=== PATIENT | female | born 1940 | race Caucasian/White ===

== ENCOUNTER 2024-02-07 | Inpatient (IN) | payer MEDICARE, BC ==
[~2024-02-07] VITALS: Ht 167.6 cm; Wt 59.0 kg
[2024-02-07] MEDS ORDERED: ONDANSETRON HCL/PF 4 MG/2 ML VIAL ONE (00:32)
[2024-02-07] MEDS: ONDANSETRON HCL/PF - ER 4 MG/2 ML VIAL IV ONE (00:38)
[2024-02-07] MEDS: IV NS 0.9% 1,000 ML IV ONE ×2 (00:39→02:19)
[2024-02-07 00:48] LABS: BASOPHILS # (AUTO) 0.1 K/uL (0.0-0.2); BASOPHILS % (AUTO) 0.5 % (0.0-2.0); EOSINOPHILS # (AUTO) 0.2 K/uL (0.0-0.7); EOSINOPHILS % (AUTO) 1.2 % (0.0-6.0); HEMATOCRIT 41 % (33-45); HEMOGLOBIN 13.7 g/dL (11.5-14.8); LYMPHOCYTES # (AUTO) 2.1 K/uL (0.8-4.8); LYMPHOCYTES % (AUTO) 15.6 % (20.0-44.0); MEAN CORPUSCULAR HEMOGLOBIN 33 PG (26.0-33.0); MEAN CORPUSCULAR HGB CONC 34 g/dl (31.0-36.0); MEAN CORPUSCULAR VOLUME 97 fL (82-100); MONOCYTES # (AUTO) 0.9 K/uL (0.1-1.30); MONOCYTES % (AUTO) 6.8 % (2.0-12.0); NEUTROPHILS # (AUTO) 10.1 K/uL (1.8-8.9); NEUTROPHILS % (AUTO) 75.9 % (43.0-81.0); PLATELET COUNT (AUTO) 279 K/uL (150-450); RED BLOOD CELL COUNT(AUTO) 4.21 MIL/uL (4.0-5.2); RED CELL DISTRIBUTION WIDTH 13.2 % (11.5-15.0); WHITE BLOOD COUNT (AUTO) 13.3 K/uL (4.3-11.0)
[2024-02-07 01:07] LABS: LACTIC ACID 3.2 mmol/L (0.4-2.0)
[2024-02-07 01:17] LABS: CALCIUM, SERUM 8.7 mg/dL (8.5-10.1); CARBON DIOXIDE 21 mmol/L (21-32); CHLORIDE 104 mmol/L (98-107); CREATININE 1.3 mg/dL (0.6-1.3); GLUCOSE 128 mg/dL (74-106); POTASSIUM 4.2 mmol/L (3.5-5.1); SODIUM SERUM 138 mmol/L (136-145); UREA NITROGEN, BLOOD 25 mg/dL (7-18)
[2024-02-07 01:23] LABS: ALANINE AMINOTRANSFERASE 31 U/L (12-78); ALBUMIN 3.2 g/dL (3.4-5.0); ALKALINE PHOSPHATASE 86 U/L (46-116); ASPARTATE AMINOTRANSFERASE 29 U/L (15-37); BILIRUBIN,TOTAL 0.3 mg/dL (0.2-1.0); LIPASE 47 U/L (16-77); NT-PRO BNP 142 pg/mL (0-125); TOTAL PROTEIN, SERUM 7.2 g/dL (6.4-8.2)
[2024-02-07] MEDS ORDERED: PIPERACI/TAZO 3.375GM/D5W 50ML PB IV ONE (02:03)
[2024-02-07] MEDS: PIPERACILLIN /TAZOBACTAM 3.375 G in IV D5W 50 ML IV ONE (02:19)
[2024-02-07] MEDS ORDERED: MAGNESIUM HYDROXIDE 30 ML UDC PO PRN (02:30)
[2024-02-07] MEDS ORDERED: Z GUARD REMEDY 4 OZ OINT TP PRN (02:30)
[2024-02-07] MEDS ORDERED: ONDANSETRON HCL/PF 4 MG/2 ML VIAL IVP PRN (02:30)
[2024-02-07 03:23] LABS: BILIRUBIN,DIRECT 0.1 mg/dL (0.0-0.2)
[2024-02-07 04:00] VITALS: BP 107/63; TEMP 98
[2024-02-07 04:24] LABS: LACTIC ACID REFLEX 3.9 mmol/L (0.4-1.9)
[2024-02-07] MEDS: IV NS 0.9% 1,000 ML IV PRN (05:19)
[2024-02-07] MEDS: PIPERACILLIN /TAZOBACTAM 3.375 G in IV D5W 50 ML IV SCH ×2 (06:33→11:38)
[2024-02-07 08:00] VITALS: BP 150/60; TEMP 97.5; O2SAT 96
[2024-02-07] MEDS ORDERED: HEPARIN INFUSION/D5W 500 ML IV PRN (11:00)
[2024-02-07] MEDS: NITROGLYCERIN 30 GM TUBE TP SCH (11:04)
[2024-02-07] MEDS: ENOXAPARIN SODIUM 80 MG/0.8 ML DISP.SYRIN SQ SCH (11:05)
[2024-02-07 12:00] VITALS: BP 105/54; TEMP 97.9; O2SAT 95
[2024-02-07 12:06] LABS: INR 1.03 (0.91-1.10); PARTIAL THROMBOPLASTIN TIME 26.2 SEC (24.3-34.3); PROTHROMBIN TIME 10.9 SECS (9.2-11.1)
[2024-02-07] MEDS ORDERED: TRAZ-252 PO (14:13)
[2024-02-07] MEDS ORDERED: FLUO20CA42 PO (14:13)
[2024-02-07] MEDS ORDERED: DONE10TA44 PO (14:13)
[2024-02-07] MEDS ORDERED: BUPR150T10 PO (14:13)
[2024-02-07] MEDS ORDERED: MEMA10TA56 PO (14:13)
[2024-02-07 16:00] VITALS: BP 103/69; TEMP 98.1; O2SAT 95
[2024-02-07] MEDS: ACETAMINOPHEN 325 MG TABLET PO PRN (18:16)
[2024-02-07 20:00] VITALS: BP 116/59; TEMP 97.4; O2SAT 94
[2024-02-08] VITALS: BP 97/66; TEMP 97; O2SAT 96
[2024-02-08] MEDS: ZOLPIDEM TARTRATE 5 MG TABLET PO PRN (00:05)
[2024-02-08] MEDS: MAG HYDROX/AL HYDROX/SIMETH 30 ML UDC PO PRN (00:10)
[2024-02-08 04:00] VITALS: BP 133/68; TEMP 98; O2SAT 94
[2024-02-08 06:59] LABS: BASOPHILS % (AUTO) 0.3 % (0.0-2.0); EOSINOPHILS % (AUTO) 0.1 % (0.0-6.0); HEMATOCRIT 35 % (33-45); HEMOGLOBIN 11.9 g/dL (11.5-14.8); LYMPHOCYTES % (AUTO) 8.3 % (20.0-44.0); MEAN CORPUSCULAR HEMOGLOBIN 33 PG (26.0-33.0); MEAN CORPUSCULAR HGB CONC 34 g/dl (31.0-36.0); MEAN CORPUSCULAR VOLUME 98 fL (82-100); MONOCYTES # (AUTO) 1.1 K/uL (0.1-1.30); MONOCYTES % (AUTO) 8.6 % (2.0-12.0); NEUTROPHILS # (AUTO) 10.3 K/uL (1.8-8.9); NEUTROPHILS % (AUTO) 82.7 % (43.0-81.0); PLATELET COUNT (AUTO) 211 K/uL (150-450); RED BLOOD CELL COUNT(AUTO) 3.59 MIL/uL (4.0-5.2); RED CELL DISTRIBUTION WIDTH 13.4 % (11.5-15.0); WHITE BLOOD COUNT (AUTO) 12.4 K/uL (4.3-11.0)
[2024-02-08 08:00] VITALS: BP 131/70; TEMP 99; O2SAT 96
[2024-02-08 08:46] LABS: ALBUMIN 2.4 g/dL (3.4-5.0); BILIRUBIN,TOTAL 0.5 mg/dL (0.2-1.0); CALCIUM, SERUM 6.8 mg/dL (8.5-10.1); CREATININE 1.2 mg/dL (0.6-1.3); PHOSPHORUS 1.4 mg/dL (2.5-4.9); POTASSIUM 3.5 mmol/L (3.5-5.1)
[2024-02-08] MEDS: NITROGLYCERIN 0.4 MG/TAB BOTTLE SL PRN (09:27)
[2024-02-08] MEDS ORDERED: IV SET PRIMARY PUMP SET 1 EA INFUS.SET MC ONE (10:23)
[2024-02-08] MEDS ORDERED: IV NS 0.9% 1,000 ML ONE (10:23)
[2024-02-08] MEDS ORDERED: LIDOCAINE HCL/MPF 1% 30 ML VIAL IJ ONE (10:24)
[2024-02-08] MEDS ORDERED: IODIXANOL 150 ML IV ONE (10:24)
[2024-02-08] MEDS ORDERED: NITROGLYCERIN IN 5 % DEXTROSE 250 ML IV ONE (10:24)
[2024-02-08] MEDS: NTG 50 MG/D5W250 ML BOTTL 250 ML IV PRN (10:25)
[2024-02-08] MEDS ORDERED: FENTANYL PF 100MCG/2ML AMPUL ONE (11:26)
[2024-02-08] MEDS ORDERED: MIDAZOLAM HCL 2 MG/2ML VIAL ONE (11:26)
[2024-02-08] MEDS: METOPROLOL TARTRATE 50 MG TABLET PO SCH (12:19)
[2024-02-08] MEDS ORDERED: K PHOS NEUTRAL 250 MG TABLET PO ONE (15:30)
[2024-02-08 16:00] VITALS: BP 111/63; TEMP 98.4; O2SAT 96
[2024-02-08] MEDS: MEMANTINE HCL 5 MG TABLET PO SCH (16:40)
[2024-02-08] MEDS: Sodium Phosphate 15 MMOL in IV NS 0.9% 245 ML IV SCH (17:38)
[2024-02-08 20:00] VITALS: BP 125/73; TEMP 99.1; O2SAT 100
[2024-02-08] MEDS: TRAZODONE 50 MG TABLET PO SCH (22:00)
[2024-02-09] VITALS (7 sets, daily range): BP systolic 132–146; BP diastolic 69–79; TEMP 98.2–99.1; O2SAT 92–98
[2024-02-09] MEDS: FLUOXETINE HCL 20 MG CAPSULE PO SCH (09:06)
[2024-02-09] MEDS: DONEPEZIL 5 MG TABLET PO SCH (09:06)
[2024-02-09] MEDS: buPROPion SR 150 MG TABLET.ER PO SCH (09:06)
[2024-02-09 10:07] LABS: BASOPHILS % (AUTO) 0.1 % (0.0-2.0); EOSINOPHILS % (AUTO) 0.2 % (0.0-6.0); HEMATOCRIT 36 % (33-45); LYMPHOCYTES # (AUTO) 1.8 K/uL (0.8-4.8); LYMPHOCYTES % (AUTO) 17.3 % (20.0-44.0); MEAN CORPUSCULAR HEMOGLOBIN 33 PG (26.0-33.0); MEAN CORPUSCULAR HGB CONC 34 g/dl (31.0-36.0); MEAN CORPUSCULAR VOLUME 98 fL (82-100); MONOCYTES % (AUTO) 9.3 % (2.0-12.0); NEUTROPHILS # (AUTO) 7.6 K/uL (1.8-8.9); NEUTROPHILS % (AUTO) 73.1 % (43.0-81.0); PLATELET COUNT (AUTO) 194 K/uL (150-450); RED BLOOD CELL COUNT(AUTO) 3.64 MIL/uL (4.0-5.2); RED CELL DISTRIBUTION WIDTH 13.6 % (11.5-15.0); WHITE BLOOD COUNT (AUTO) 10.4 K/uL (4.3-11.0)
[2024-02-09 11:16] LABS: ALBUMIN 2.1 g/dL (3.4-5.0); BILIRUBIN,TOTAL 0.6 mg/dL (0.2-1.0); CALCIUM, SERUM 6.6 mg/dL (8.5-10.1); MAGNESIUM 2.2 mg/dL (1.8-2.4); PHOSPHORUS 2.3 mg/dL (2.5-4.9); POTASSIUM 3.4 mmol/L (3.5-5.1); TOTAL PROTEIN, SERUM 5.9 g/dL (6.4-8.2)
[2024-02-09] MEDS ORDERED: DIATR MEGLU/DIATRIZOATE SODIUM 120 ML BOTTLE (GASTROGRAPHIN) ONE (11:44)
[2024-02-09] MEDS: ENOXAPARIN SODIUM 40 MG/0.4 ML DISP.SYRIN SQ SCH (12:00)
[2024-02-09] MEDS: Sodium Phosphate 15 MMOL in IV NS 0.9% 245 ML IV ONE (16:25)
[2024-02-10] MEDS: IV NS 0.9% 1,000 ML IV PRN (00:31)
[2024-02-10 00:44] VITALS: BP 133/69; TEMP 98.3; O2SAT 94
[2024-02-10 04:00] VITALS: BP 139/68; TEMP 98.5; O2SAT 88
[2024-02-10 06:42] LABS: BASOPHILS % (AUTO) 0.2 % (0.0-2.0); EOSINOPHILS % (AUTO) 0.2 % (0.0-6.0); HEMATOCRIT 31 % (33-45); HEMOGLOBIN 10.5 g/dL (11.5-14.8); LYMPHOCYTES # (AUTO) 1.2 K/uL (0.8-4.8); LYMPHOCYTES % (AUTO) 12.6 % (20.0-44.0); MEAN CORPUSCULAR HEMOGLOBIN 33 PG (26.0-33.0); MEAN CORPUSCULAR HGB CONC 34 g/dl (31.0-36.0); MEAN CORPUSCULAR VOLUME 98 fL (82-100); MONOCYTES # (AUTO) 0.9 K/uL (0.1-1.30); MONOCYTES % (AUTO) 10.3 % (2.0-12.0); NEUTROPHILS # (AUTO) 7.1 K/uL (1.8-8.9); NEUTROPHILS % (AUTO) 76.7 % (43.0-81.0); PLATELET COUNT (AUTO) 181 K/uL (150-450); RED BLOOD CELL COUNT(AUTO) 3.14 MIL/uL (4.0-5.2); RED CELL DISTRIBUTION WIDTH 13.2 % (11.5-15.0); WHITE BLOOD COUNT (AUTO) 9.2 K/uL (4.3-11.0)
[2024-02-10 07:01] LABS: CALCIUM, SERUM 6.1 mg/dL (8.5-10.1); CARBON DIOXIDE 21 mmol/L (21-32); CHLORIDE 106 mmol/L (98-107); CREATININE 0.9 mg/dL (0.6-1.3); GLUCOSE 130 mg/dL (74-106); MAGNESIUM 2.3 mg/dL (1.8-2.4); PHOSPHORUS 1.8 mg/dL (2.5-4.9); SODIUM SERUM 136 mmol/L (136-145); UREA NITROGEN, BLOOD 14 mg/dL (7-18)
[2024-02-10 07:21] LABS: POTASSIUM 2.8 mmol/L (3.5-5.1)
[2024-02-10 08:00] VITALS: BP 155/88; TEMP 99.1; O2SAT 97
[2024-02-10 09:09] LABS: CHOLESTEROL 161 mg/dL (<200); HDL CHOLESTEROL 37 mg/dL (40-60); LDL 105 mg/dL (0-99); TRIGLYCERIDES 108 mg/dL (30-150)
[2024-02-10] MEDS: POTASSIUM CHLORIDE 20 MEQ TAB.PRT.SR PO ONE (09:32)
[2024-02-10] MEDS ORDERED: POTASSIUM CHLORIDE 20 MEQ TAB.PRT.SR PO SCH (10:00)
[2024-02-10 12:00] VITALS: BP 136/69; TEMP 99; O2SAT 98
== END 2024-02-10 15:30 | DRG 280 ==
LOC: ER 00:01 → TELE1 02:15 → ICU 02-08 10:16 → TELE1 02-08 12:09
PROVIDERS: ADMIT Student in an Organized Health Care Education/Training Program; ATTEND Student in an Organized Health Care Education/Training Program
PROC: 4A023N7 Measurement of Cardiac Sampling and Pressure, Left Heart, Percutaneous Approach (ICD-10-PCS; principal; 2024-02-08)
PROC: B211YZZ Fluoroscopy of Multiple Coronary Arteries using Other Contrast (ICD-10-PCS; 2024-02-08)
PROC: B215YZZ Fluoroscopy of Left Heart using Other Contrast (ICD-10-PCS; 2024-02-08)
PROC: 05HC33Z Insertion of Infusion Device into Left Basilic Vein, Percutaneous Approach (ICD-10-PCS; 2024-02-08)
DX: I21.4 Non-ST elevation (NSTEMI) myocardial infarction (principal); J96.01 Acute respiratory failure with hypoxia; K56.7 Ileus, unspecified; E87.20 Acidosis, unspecified; E44.0 Moderate protein-calorie malnutrition; I21.A1 Myocardial infarction type 2; I10 Essential (primary) hypertension; E86.0 Dehydration; R79.89 Other specified abnormal findings of blood chemistry; Z85.118 Personal history of other malignant neoplasm of bronchus and lung; Z90.2 Acquired absence of lung [part of]; F03.90 Unspecified dementia, unspecified severity, without behavioral disturbance, psychotic disturbance, mood disturbance, and anxiety; D50.9 Iron deficiency anemia, unspecified; D72.829 Elevated white blood cell count, unspecified; E87.6 Hypokalemia; Z87.891 Personal history of nicotine dependence
CPT/HCPCS: 36415; 71045-TC; 74018; 74250-TC; 80048-TC; 80053-TC; 80061-TC; 82248-TC; 83605-TC; 83690-TC; 83735-TC; 83880; 84100-TC; 84484-TC; 85025-TC; 85610-TC; 85730-TC; 87040-TC; 93307-TC; 94799-TC; 97110-TC; 97116-TC; 97530-TC; A4223; A9563; C1887; G0378; G0500; J1644; J1650; J2250; J2405; J2543; J3010; J3490; J7030; J7050; J7060; Q9963; Q9967